=== PATIENT | male | born 1995 | race Caucasian/White ===

== ENCOUNTER 2018-05-22 09:07 | Day surgery (SDC) | payer OTHER ==
[2018-05-22 09:31] LABS: BASOPHILS % (AUTO) 0.3 %; EOSINOPHILS # (AUTO) 0.1 10^3/uL (0.0-0.7); EOSINOPHILS % (AUTO) 0.4 %; HGB - HEMOGLOBIN 14.3 g/dL (14.0-18.0); LYMPHOCYTES # (AUTO) 2.1 10^3/uL (1.5-3.5); LYMPHOCYTES % (AUTO) 15.5 %; MEAN CORPUSCULAR HGB CONC 33.6 g/dL (32.0-36.0); MEAN CORPUSCULAR VOLUME 83.3 fL (80.0-94.0); MEAN PLATELET VOLUME 7.3 fL (7.4-11.4); MONOCYTES # (AUTO) 0.9 10^3/uL (0.0-1.0); MONOCYTES % (AUTO) 6.2 %; NEUTROPHILS # (AUTO) 10.8 10^3/uL (1.5-6.6); NEUTROPHILS % (AUTO) 77.6 %; PLT - PLATELET COUNT 279 10^3/uL (130-450); RED CELL DISTRIBUTION WIDTH 13.6 % (12.0-15.0); WHITE BLOOD COUNT 13.9 x10^3/uL (4.8-10.8)
--- NOTE | 2018-05-22 09:43 | ED Physician Documentation ---
PD HPI ABD PAIN - Stated complaint Stated Complaint: ABD PX - Chief complaint Chief Complaint: Abd Pain - History obtained from History obtained from: Patient, Family - History of Present Illness Timing - onset: Enter time (1800), Last night Timing - duration: Days (1) Timing - details: Gradual onset, Still present Quality: Sharp, Pain Location: RLQ Improved by: Laying still Worsened by: Moving, Position, Palpation Associated symptoms: Nausea. No: Vomiting Similar symptoms before: Has not had sx before Recently seen: Not recently seen - Additional information Additional information: Previously well 23-year-old male developed abdominal pain at about 6 PM last night that was periumbilical and has migrated into the right lower quadrant overnight. The patient states that it was initially present only when he moved it is now present continuously. He did have a low-grade fever last night he has had some nausea without vomiting he has had some loose stool and he has lost his appetite. The patient reports four first-degree relatives with appendicitis within the last year Review of Systems Constitutional: reports: Fever Eyes: denies: Decreased vision Ears: denies: Ear pain Nose: denies: Congestion Throat: denies: Sore throat Cardiac: denies: Chest pain / pressure Respiratory: denies: Dyspnea, Cough GI: reports: Abdominal Pain, Nausea, Diarrhea. denies: Vomiting, Constipation : denies: Dysuria, Frequency Skin: denies: Rash Musculoskeletal: denies: Neck pain, Back pain, Extremity pain Neurologic: denies: Generalized weakness, Focal weakness, Numbness PD PAST MEDICAL HISTORY - Past Surgical History Past Surgical History: No - Present Medications Home Medications: Ambulatory Orders Medication Instructions Recorded Confirmed No Known Home Medications 05/22/18 05/22/18 - Allergies Allergies/Adverse Reactions: Allergies Allergy/AdvReac Type Severity Reaction Status Date / Time No Known Drug Allergies Allergy Verified 05/22/18 09:18 - Social History Does the pt smoke?: No Smoking Status: Never smoker Does the pt drink ETOH?: No Does the pt have substance abuse?: No - Immunizations Immunizations are current?: Yes - POLST Patient has POLST: No PD ED PE NORMAL - Vitals Vital signs reviewed: Yes (tachy and hypertensive ) - General General: Alert and oriented X 3, No acute distress, Well developed/nourished - HEENT HEENT: Atraumatic, PERRL, EOMI - Neck Neck: Supple, no meningeal sign - Cardiac Cardiac: RRR, No murmur - Respiratory Respiratory: No respiratory distress, Clear bilaterally - Abdomen Abdomen: Soft, Other (RLQ tenderness is specific, reproducible and localized. ) - Back Back: No CVA TTP, No spinal TTP - Derm Derm: Normal color, Warm and dry, No rash - Extremities Extremities: No deformity, No edema - Neuro Neuro: Alert and oriented X 3, superintendent greens 2-12 intact, No motor deficit, No sensory deficit, Normal speech Eye Opening: Spontaneous Motor: Obeys Commands Verbal: Oriented GCS Score: 15 - Psych Psych: Normal mood, Normal affect Results - Vitals Vitals: Vital Signs - 24 hr 05/22/18 09:15 Temperature 37.0 C Heart Rate 108 H Respiratory 14 Rate Blood Pressure 136/76 H O2 Saturation 98 Oxygen O2 Source Room air - Labs Labs: Laboratory Tests 05/22/18 05/22/18 05/22/18 09:25 09:25 09:48 WBC 13.9 H RBC 5.10 Hgb 14.3 Hct 42.5 MCV 83.3 MCH 28.0 MCHC 33.6 RDW 13.6 Plt Count 279 MPV 7.3 L Neut # (Auto) 10.8 H Lymph # (Auto) 2.1 [place] # (Auto) 0.9 Eos # (Auto) 0.1 Baso # (Auto) 0.0 Absolute Nucleated RBC 0.01 Nucleated RBC % 0.1 Sodium 141 Potassium 3.5 Chloride 104 Carbon Dioxide 23 Anion Gap 14.0 H BUN 10 Creatinine 0.8 Estimated GFR (MDRD) 119 Glucose 103 H Calcium 9.1 Total Bilirubin 1.2 H AST 20 ALT 17 Alkaline Phosphatase 61 Total Protein 8.3 H Albumin 4.4 Globulin 3.9 Albumin/Globulin Ratio 1.1 Lipase 26 Urine Color YELLOW Urine Clarity CLEAR Urine pH 6.0 Ur Specific [place] >=1.030 H Urine Protein NEGATIVE Urine Glucose (UA) NEGATIVE Urine Ketones NEGATIVE Urine Occult Blood TRACE-INTA Urine Nitrite NEGATIVE Urine Bilirubin NEGATIVE Urine Urobilinogen 0.2 (NORMAL) Ur Leukocyte Esterase NEGATIVE Ur Microscopic Review NOT INDICATED Urine Culture Comments NOT INDICATED - Rads (name of study) CT abd pel with Radiology: Prelim report reviewed (Impression: Acute appendicitis without abscess or perforation. Otherwise negative.), Discussed with rads (Dr. Aguilar), EMP read indepedently, See rad report PD MEDICAL DECISION MAKING - ED course Complexity details: reviewed old records, reviewed results, re-evaluated patient, considered differential, d/w patient, d/w family ED course: Previously healthy 23-year-old male with right lower quadrant pain has ap pendicitis on CT scan. He is administered saline and Zosyn. Dr. Matt Santillan is consulted in the case and will take the patient to surgery today. Departure - Departure Disposition: ED Transfer to [facility] Clinical Impression: Appendicitis Qualifiers: Appendicitis type: acute appendicitis Acute appendicitis type: with localized peritonitis Appendicitis gangrene presence: unspecified whether gangrene present Appendicitis perforation presence: without perforation Appendicitis abscess presence: without abscess Qualified Code(s): K35.30 - Acute appendicitis with localized peritonitis, without perforation or gangrene Condition: Stable
[2018-05-22 09:44] LABS: ALBUMIN 4.4 g/dL (3.2-5.5); ALBUMIN/GLOBULIN RATIO 1.1 (1.0-2.2); BILIRUBIN,TOTAL 1.2 mg/dL (0.2-1.0); CALCIUM 9.1 mg/dL (8.5-10.3); CREATININE 0.8 mg/dL (0.6-1.2); TOTAL PROTEIN 8.3 g/dL (6.7-8.2)
[2018-05-22] MEDS ORDERED: IOVERSOL 320 100 ML VIAL IVP ONE ×2 (09:55→17:07)
[2018-05-22 09:58] LABS: BILIRUBIN,URINE NEGATIVE (NEGATIVE); GLUCOSE, URINE (UA) NEGATIVE (NEGATIVE); KETONES,URINE (UA) NEGATIVE (NEGATIVE); LEUKOCYTE ESTERASE, URINE NEGATIVE (NEGATIVE); NITRITE,URINE NEGATIVE (NEGATIVE); OCCULT BLOOD,URINE TRACE-INTA (NEGATIVE); PROTEIN,URINE NEGATIVE (NEGATIVE); UROBILINOGEN,URINE 0.2 (NORMAL) E.U./dL (NORMAL)
[2018-05-22 10:03] LABS: CLARITY,URINE CLEAR (CLEAR)
[2018-05-22] MEDS ORDERED: SODIUM CHLORIDE 0.9% 1,000 ML IV ONE (10:14)
--- NOTE | 2018-05-22 10:21 | CT Report ---
Reason: RLQ pain Procedure Date: 05/22/2018 Accession Number: [id number] / [id number] Procedure: CT - Abdomen/Pelvis W CPT Code: FULL RESULT: EXAM: CT ABDOMEN AND PELVIS EXAM DATE: 05/22/2018 10:04 AM. CLINICAL HISTORY: RLQ pain. COMPARISONS: None. TECHNIQUE: Routine helical CT imaging was performed through the abdomen and pelvis. IV contrast: ISOVUE 300 100mL. Enteric contrast: No. Reconstructions: Coronal and sagittal. In accordance with CT protocol optimization, one or more of the following dose reduction techniques were utilized for this exam: automated exposure control, adjustment of mA and/or KV based on patient size, or use of iterative reconstructive technique. FINDINGS: Lung Bases: Unremarkable. Liver: Normal. No masses. Gallbladder/Bile Ducts: Unremarkable. Spleen: Normal. Pancreas: Normal. Adrenal Glands: Normal. Kidneys: Normal. No masses or hydronephrosis. Peritoneal Cavity/Bowel: There are 2 appendicoliths. There is definite acute appendicitis. The maximal transverse diameter is 16 mm. No evidence of abscess or perforation. Pelvic Organs: Normal. The bladder and visualized pelvic organs are within normal limits. Multiple small reactive right lower quadrant mesenteric lymph nodes. Vasculature: No aneurysms or other significant abnormality. Bones: No significant abnormality. Other: These findings were directly communicated to the ER physician. IMPRESSION: Acute appendicitis without abscess or perforation. Otherwise negative. RADIA
[2018-05-22] MEDS ORDERED: PIPERACILLIN/TAZOBACTAM 3.375 GM in SODIUM CHLORIDE 0.9% MINIBAG 100 ML IV STA (10:30)
--- NOTE | 2018-05-22 11:02 | CONSULTATION NOTE ---
Referring Provider Name of Referring Provider:: Dr. Salazar Consult Date: 05/22/18 Chief Complaint - Chief Complaint Chief Complaint: abd pain History of Present Illness - Admitted From Admitted From:: ER - History Obtained From Records Reviewed: yes History obtained from: pt Exam Limitations: none - History of Present Illness HPI Comment/Other: 23 yo male with 18 hr hx of sudden onset of dull aching RLQ pain, exacerbated by activity, cough and alleviated by rest. Associated nausea, fever, chills but no vomiting, change in bowel habits, wt loss, melena, hematochezia, heartburn, dysphagia, hx previous similar sx, others in household with similar sx. FH appendicitis in 2 siblings. Evaluation in the ER included CBC showing leukocytosis, essentially nl CMP, UA, and CT showing markedly dilated appendix with 2 appendicoliths. Surgical consultation was requested. History - Past Medical History Cardiovascular: reports: None Respiratory: reports: None Neuro: reports: None Endocrine/Autoimmune: reports: None GI: reports: Other (abd pain). denies: GERD, GI bleed, Ulcers : reports: None MRSA Hx?: No Other Past Medical History: none - Past Surgical History Other past surgical history: none - Family & Social History Living arrangement: At home Living Situation: With family Social History Notes: park maintenance technician in [place] - Substance History Use: Uses substance without health or social issues: NONE - POLST Patient has POLST: No Meds/Allgy - Home Medications Home Medications: Ambulatory Orders Medication Instructions Recorded Confirmed No Known Home Medications 05/22/18 05/22/18 - Allergies Allergies/Adverse Reactions: Allergies Allergy/AdvReac Type Severity Reaction Status Date / Time No Known Drug Allergies Allergy Verified 05/22/18 09:18 Review of Systems - Constitutional Constitutional: reports: Fever, Chills, Malaise, Poor appetite, Diaphoresis. denies: Weight gain, Weight loss - Gastrointestinal Gastrointestinal: reports: Abdominal pain, Rectal bleeding, Nausea. denies: Constipation, Diarrhea, Change in bowel habits, Black stools, Bloody stools, Vomiting - Genitourinary Genitourinary: reports: Dysuria - All Other Systems All Other Systems: reports: Reviewed and negative Exam - Vital Signs Reviewed Vital Signs: Yes Vital Signs: Vital Signs x48h Temp Pulse Resp BP Pulse Ox 05/22/18 09:15 37.0 C 108 H 14 136/76 H 98 - Physical Exam General Appearance: positive: Mild distress Eyes Bilateral: positive: Normal inspection ENT: positive: ENT inspection nml, Pharynx nml, No signs of dehydration Neck: positive: Nml inspection, Thyroid nml, No JVD, Trachea midline. negative: Lymphadenopathy (R), Lymphadenopathy (L) Respiratory: positive: Chest non-tender, No respiratory distress, Breath sounds nml. negative: Wheezes, Rales, Rhonchi Cardiovascular: positive: Regular rate & rhythm, No murmur, No gallop Abdomen: positive: Nml bowel sounds, Tenderness (RLQ peritoneal signs; no generalized peritoneal signs), Guarding, Rebound. negative: Hepatomegaly, Splenomegaly, Mass Back: positive: Nml inspection. negative: CVA tenderness (R), CVA tenderness (L) Skin: positive: Color nml, No rash, Warm, Dry. negative: Cyanosis Extremities: positive: Non-tender, No pedal edema. negative: Calf tenderness Neurologic/Psychiatric: positive: Oriented x3 Conclusion/Plan - Diagnosis Diagnosis: Acute appendicitis; no clnical or radiographic evidence of perforation at present. - Plan Plan: Lap priscila. CHARLI gale with pt and consent obtained. Procedure will be performed today. - Lab Results Lab results reviewed: Yes Fish Bones: 05/22/18 09:25 05/22/18 09:25 Other Lab Results: CMP essentially nl; UA neg - Diagnostic Imaging Results Diagnostic Imaging Results: positive: Final report reviewed, Read independently Diagnostic Imaging Results Comments: See HPI
--- NOTE | 2018-05-22 11:17 | ANESTHESIA ---
Pre-Anesthesia VS, & Labs - Diagnosis Diagnosis Acute appendicitis; no clnical or radiographic evidence of perforation at present. - Procedure Lap appy Vital Signs: Temp Pulse Resp BP Pulse Ox 37.0 C 108 H 14 136/76 H 98 05/22/18 09:15 05/22/18 09:15 05/22/18 09:15 05/22/18 09:15 05/22/18 09:15 Height 5 ft 11 in Weight (kg) 88.451 kg Body Mass Index 27.1 - NPO >8 hours - Lab Results Current Lab Results: Laboratory Tests 05/22/18 09:25: Sodium 141, Potassium 3.5, Chloride 104, Carbon Dioxide 23, Anion Gap 14.0 H, BUN 10, Creatinine 0.8, Estimated GFR (MDRD) 119, Glucose 103 H, Calcium 9.1, Total Bilirubin 1.2 H, AST 20, ALT 17, Alkaline Phosphatase 61, Total Protein 8.3 H, Albumin 4.4, Globulin 3.9, Albumin/Globulin Ratio 1.1, Lipase 26 05/22/18 09:25: WBC 13.9 H, RBC 5.10, Hgb 14.3, Hct 42.5, MCV 83.3, MCH 28.0, MCHC 33.6, RDW 13.6, Plt Count 279, MPV 7.3 L, Neut # (Auto) 10.8 H, Lymph # (Auto) 2.1, [place] # (Auto) 0.9, Eos # (Auto) 0.1, Baso # (Auto) 0.0, Absolute Nucleated RBC 0.01, Nucleated RBC % 0.1 Fish Bones: 05/22/18 09:25 05/22/18 09:25 Home Medications and Allergies Home Medications: Ambulatory Orders No Known Home Medications 05/22/18 No Known Home Medications 05/22/18 Allergies/Adverse Reactions: Allergies Allergy/AdvReac Type Severity Reaction Status Date / Time No Known Drug Allergies Allergy Verified 05/22/18 09:18 Anes History & Medical History - Anesthetic History Family history of Anesthesia Complications: Denies Family history of Malignant Hyperthermia: Denies - Medical History Cardiovascular: reports: None Pulmonary: reports: None Gastrointestinal: reports: Other (abd pain). denies: GERD, GI bleed, Ulcers Urinary: reports: None Neuro: reports: None Musculoskeletal: reports: None Endocrine/Autoimmune: reports: None Blood Disorders: reports: None Smoking Status: Never smoker Psychosocial: reports: No issues indicated Other Past Medical History: none - Surgical History Other Past Surgical History: none Exam General: Alert, Oriented x3, Cooperative, No acute distress Dental: WNL Mouth Openin Fingerbreadth Neck Mobility: Normal Mallampati classification: III Thyromental Distance: 4-6 cm Respiratory: Lungs clear, Normal breath sounds, No respiratory distress, No accessory muscle use Cardiovascular: Regular rate, Normal S1, Normal S2, No murmurs Mental/Cognitive Status: Alert/Oriented X3, Normal for patient Plan Anesthesia Type: General Consent for Procedure(s) Verified and Reviewed: Yes Code Status: Attempt Resuscitation ASA classification: 1-Healthy patient Is this case an emergency?: Yes
[2018-05-22] MEDS ORDERED: IODINE/POTASSIUM IODIDE 8 ML SOLUTION TOP ONE (12:04)
[2018-05-22] MEDS ORDERED: BUPIVACAINE 0.5%-EPI 1:200000 PF 30 ML VIAL ONE (12:05)
[2018-05-22] MEDS ORDERED: LACTATED RINGERS 1,000 ML IV ONE (13:37)
[2018-05-22] MEDS ORDERED: BUPIVACAINE 0.5%-EPI 1:200000 PF 30 ML VIAL SUBQ ONE ×2 (14:10→14:24)
[2018-05-22] MEDS ORDERED: KETOROLAC 30 MG/ML VIAL IVP ONE (14:15)
[2018-05-22] MEDS ORDERED: LIDOCAINE-MPF 2% 5 ML VIAL IM ONE (14:15)
[2018-05-22] MEDS ORDERED: ONDANSETRON 4 MG/2 ML VIAL IVP ONE (14:15)
[2018-05-22] MEDS ORDERED: NEOSTIGMINE 1 MG/1 ML 10 ML MDV IVP ONE (14:15)
[2018-05-22] MEDS ORDERED: GLYCOPYRROLATE 1 MG/5 ML VIAL IVP ONE (14:15)
[2018-05-22] MEDS ORDERED: MIDAZOLAM 2 MG/2 ML VIAL IVP ONE (14:15)
[2018-05-22] MEDS ORDERED: fentaNYL 100 MCG/2 ML VIAL IVP ONE (14:15)
[2018-05-22] MEDS ORDERED: ROCURONIUM 50 MG/5 ML VIAL IVP ONE (14:15)
[2018-05-22] MEDS ORDERED: PROPOFOL 200 MG/20 ML VIAL IVP ONE (14:15)
[2018-05-22] MEDS ORDERED: DEXAMETHASONE 4 MG/ML VIAL IVP ONE (14:15)
[2018-05-22] MEDS ORDERED: ONDANSETRON 4 MG/2 ML VIAL IVP PRN (14:54)
[2018-05-22] MEDS ORDERED: ACETAMINOPHEN 325 MG TABLET PO PRN (14:54)
[2018-05-22] MEDS ORDERED: oxyCODONE 5 MG TABLET PO PRN (14:54)
[2018-05-22] MEDS ORDERED: IBUPROFEN 600 MG TABLET PO PRN (14:54)
[2018-05-22] MEDS ORDERED: oxyCODONE 5 MG TABLET ONE (16:29)
[2018-05-22 17:01] VITALS: BP 138/83
--- NOTE | 2018-05-23 14:45 | OPERATIVE REPORT ---
DATE OF SERVICE: 05/22/2018 Physician: Matt Santillan MD PREOPERATIVE DIAGNOSIS: Acute appendicitis. POSTOPERATIVE DIAGNOSIS: Acute appendicitis. PROCEDURE PERFORMED: Laparoscopic appendectomy. ANESTHESIA: General endotracheal by Jonny Bonner CRNA SURGEON: Matt Santillan MD ESTIMATED BLOOD LOSS: 5 mL. COMPLICATIONS: None. FINDINGS: The distal 3/4 of the appendix was markedly dilated and inflamed without gross evidence of gangrenous change or perforation. The cecal base and most proximal portion of the appendix appeared normal, as did the visualized portions of the terminal ileum, remainder of the small and large bowel and liver. INDICATIONS: Patient is a 23-year-old gentleman with an approximately 18-hour history of progressive ly worsening right lower quadrant pain. Examination revealed localized peritoneal signs in the right lower quadrant. A CT scan showed an abnormally dilated appendix with several appendicoliths, findin gs thought to be consistent with acute appendicitis, and advised to undergo laparoscopic appendectomy for definitive surgical treatment. TECHNIQUE: After informed consent, patient was taken to the operating room, where he was placed unde r general endotracheal anesthesia. Preoperative preparation included application of sequential calf compression boots and therapeutic administration of Zosyn preoperatively. His abdomen was prepared w ith ChloraPrep solution and draped in the usual sterile fashion. A transverse incision was made along the inferior edge of the umbilicus and carried down through the layers of abdominal wall. The peritoneum was identified and entered sharply. A 10 mm Jessie cannula was inserted. Pneumoperitoneum was achieved with carbon dioxide. A 10 mm 30-degree Terese telesco pe was inserted. Laparoscopy was carried out with findings noted above. Two additional 5 mm ports w ere placed in the lower midline and left lower quadrant. Instruments were passed. The appendix was grasped. The mesoappendix was exposed, ligated, and divided with the LigaSure device. The appendix was ligated and divided at its junction with the cecal base with the 45 mm linear cutting stapling de vice with a vascular load. This also provided hemostasis. The appendix was placed in an organ retri eval bag, extracted, and then sent for pathologic evaluation. After hemostasis was assured, the right lower quadrant was irrigated with saline solution, following which instruments and cannulas were removed under direct vision. Pneumoperitoneum was allowed to esc ape, and the incisions were closed in layers using continuous 0 Vicryl reapproximating the midline fa scia at the umbilicus, followed by 4-0 Monocryl subcuticular skin closure at all the port sites, foll owed by Dermabond. Then, 20 mL of 0.5% Marcaine with epinephrine was infiltrated into the incision t o assist in postoperative analgesia. Anesthesia was terminated and patient transferred to the [facility] ry room in satisfactory condition. Sponge and needle counts were correct x2, and no drains were used . TD: 05/23/2018 13:09
== END 2018-05-22 10:46 | disposition home or self-care (01) ==
LOC: ED 09:07 → SDS 10:45
PROVIDERS: ATTEND Internal Medicine Gastroenterology
PROC: 0DTJ4ZZ Resection of Appendix, Percutaneous Endoscopic Approach (ICD-10-PCS; principal; 2018-05-22 12:00)
DX: K35.80 Unspecified acute appendicitis (principal)
CPT/HCPCS: 36415; 44970; 74177; 80053; 81003; 83690; 85025; 96361; 96365; 99283; 99284; A9270; J7120; Q9967; 81001; 87086

== ENCOUNTER 2018-08-23 07:56 | Emergency (ER) | payer OTHER ==
[2018-08-23 08:01] VITALS: BP 142/89
--- NOTE | 2018-08-23 08:21 | ED Physician Documentation ---
PD HPI MALE - Stated complaint Stated Complaint: MALE - Chief complaint Chief Complaint: General - History obtained from History obtained from: Patient - History of Present Illness Timing - onset: How many days ago (2-3) Timing - duration: Days (2-3) Timing - details: Gradual onset, Still present Associated symptoms: Testiclar pain (he noted a lump that is tender in left scrotum. No noted injury. No discharge nor rash.). No: Scrotal swelling PD HPI MALE CONTRIB FACTORS: Sexually active (with just his .) Similar symptoms before: Has not had sx before Review of Systems Throat: denies: Sore throat Respiratory: denies: Dyspnea, Cough GI: reports: Abdominal Pain (mild aching at times), Nausea. denies: Vomiting : reports: Frequency. denies: Discharge Skin: denies: Rash Musculoskeletal: denies: Neck pain, Back pain PD PAST MEDICAL HISTORY - Past Medical History Cardiovascular: None Respiratory: None Neuro: None Endocrine/Autoimmune: None GI: Other : None Musculoskeletal: None - Past Surgical History Past Surgical History: No - Present Medications Home Medications: Ambulatory Orders Medication Instructions Recorded Confirmed Doxycycline Hyclate 100 mg PO BID #14 capsule 08/23/18 Naproxen 500 mg PO BID #20 tablet 08/23/18 - Allergies Allergies/Adverse Reactions: Allergies Allergy/AdvReac Type Severity Reaction Status Date / Time No Known Drug Allergies Allergy Verified 08/23/18 08:01 - Social History Does the pt smoke?: No Smoking Status: Never smoker Does the pt drink ETOH?: No Does the pt have substance abuse?: No - Immunizations Immunizations are current?: Yes - POLST Patient has POLST: No PD ED PE NORMAL - Vitals Vital signs reviewed: Yes - General General: Alert and oriented X 3, No acute distress, Well developed/nourished - Abdomen Abdomen: Soft, Non tender - Male Male : Other (normal genitalia with normal testicular lie. Bedside U/S showing no noted masses, good blood flow. ) - Rectal Rectal: Deferred - Back Back: No CVA TTP Results - Vitals Vitals: Vital Signs - 24 hr 08/23/18 08:00 Temperature 36.4 C L Heart Rate 100 Respiratory 20 Rate Blood Pressure 142/89 H O2 Saturation 97 Oxygen O2 Source Room air PD MEDICAL DECISION MAKING - ED course Complexity details: reviewed results (my bedside U/S showed normal flow in testicle, normal size, and no masses. No fluid collections in scrotum. ), considered differential (seems likely stretch/mechanical epididymitis. Will get bedside U/S. ), d/w patient Departure - Departure Disposition: 01 Home, Self Care Clinical Impression: Epididymitis, left, Left testicular pain Condition: Stable Record reviewed to determine appropriate education?: Yes Instructions: ED Epididymitis Follow-Up: [facility] [Provider Group] [facility] [Provider Group] Prescriptions: Doxycycline Hyclate 100 mg PO BID #14 capsule Naproxen 500 mg PO BID #20 tablet Comments: This seems like epididymitis which can be inflammatory or infectious. We will treat it with naproxen anti-inflammatories and doxycycline antibiotic. Avoid vigorous activity with a lot of jostling such as bouncing or running or basketball types of things. Less inguinal stretching for a few days as well. See if this tapers down and improves over the next several days and should be gone during that time or even by a week. Follow-up with your primary care or urology if it persists. Discharge Date/Time: 08/23/18 09:11
[2018-08-23] MEDS ORDERED: DOXYCYCLINE 100 MG TABLET PO STA (08:49)
[2018-08-23] MEDS ORDERED: NAPROXEN 250 MG TABLET PO STA (08:49)
== END 2018-08-23 09:11 | disposition home or self-care (01) ==
LOC: ED 07:56
DX: N45.1 Epididymitis (principal)
CPT/HCPCS: 99282; 99284; A9270

== ENCOUNTER 2019-02-22 12:35 | Emergency (ER) | payer OTHER ==
--- NOTE | 2019-02-22 14:02 | Ultrasound Report ---
Reason: L testicle pain Procedure Date: 02/22/2019 Accession Number: [id number] / [id number] Procedure: US - Testicle w/Doppler Limited CPT Code: Final Report FULL RESULT: EXAM: SCROTAL ULTRASOUND EXAM DATE: 02/22/2019 01:35 PM. CLINICAL HISTORY: L testicle pain. COMPARISON: None. TECHNIQUE: Real-time scanning was performed with static images obtained. Color-flow images were utilized. FINDINGS: Right: Testis: 5.0 x 2.2 x 3.2 cm. Normal size and echotexture. No mass, calcification, or abnormal blood flow. Epididymis: 3.2 x 1.0 x 1.7 cm. Normal size and echotexture. No mass or abnormal blood flow. Hydrocele: Tiny hydrocele. Varicocele: None. Left: Testis: 4.5 x 2.2 x 3.1 cm. Normal size and echotexture. No mass, calcification, or abnormal blood flow. Epididymis: 4.0 x 0.7 x 1.2 cm. Normal size and echotexture. No mass or abnormal blood flow. Hydrocele: None. Varicocele: None. IMPRESSION: Tiny right hydrocele. Otherwise unremarkable. RADIA
[2019-02-22 15:18] LABS: GLUCOSE, URINE (UA) NEGATIVE (NEGATIVE); KETONES,URINE (UA) NEGATIVE (NEGATIVE); LEUKOCYTE ESTERASE, URINE NEGATIVE (NEGATIVE); NITRITE,URINE NEGATIVE (NEGATIVE); OCCULT BLOOD,URINE TRACE-LYSE (NEGATIVE); PROTEIN,URINE TRACE mg/dL (NEGATIVE); UROBILINOGEN,URINE 1 (NORMAL) E.U./dL (NORMAL)
[2019-02-22 15:23] VITALS: BP 153/85
[2019-02-22 15:26] LABS: BILIRUBIN,URINE NEGATIVE (NEGATIVE); CLARITY,URINE CLEAR (CLEAR); ICTOTEST,URINE NEGATIVE
--- NOTE | 2019-02-22 15:39 | ED Physician Documentation ---
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 He has had some persistence of pain up into the left groin area since that time and has a follow-up to see his primary next week about that. He is now developed pain in the right testicle in a similar fashion he denies any discharge denies any urinary symptoms he does feel like he has felt a tiny mass on the testicle on the right side. Review of Systems Constitutional: denies: Fever Nose: denies: Congestion Throat: denies: Sore throat Respiratory: denies: Dyspnea, Cough GI: denies: Abdominal Pain, Nausea, Vomiting : denies: Dysuria, Frequency Skin: denies: Rash Musculoskeletal: denies: Neck pain, Back pain, Extremity pain Neurologic: denies: Generalized weakness, Focal weakness, Numbness PD PAST MEDICAL HISTORY - Past Medical History Past Medical History: No Cardiovascular: None Respiratory: None Neuro: None Endocrine/Autoimmune: None GI: Other : None Musculoskeletal: None - Past Surgical History Past Surgical History: No - Present Medications Home Medications: Ambulatory Orders Medication Instructions Recorded Confirmed Doxycycline Hyclate 100 mg PO BID #14 capsule 08/23/18 Naproxen 500 mg PO BID #20 tablet 08/23/18 Doxycycline Hyclate 100 mg PO BID #28 capsule 02/22/19 - Allergies Allergies/Adverse Reactions: Allergies Allergy/AdvReac Type Severity Reaction Status Date / Time No Known Drug Allergies Allergy Verified 02/22/19 12:46 - Social History Does the pt smoke?: No Smoking Status: Never smoker Does the pt drink ETOH?: No Does the pt have substance abuse?: No - Immunizations Immunizations are current?: Yes - POLST Patient has POLST: No PD ED PE NORMAL - Vitals Vital signs reviewed: Yes (tachy and hypertensive) - General General: Alert and oriented X 3, No acute distress, Well developed/nourished - HEENT HEENT: Atraumatic, PERRL, EOMI - Respiratory Respiratory: No respiratory distress - Male Male : Other (There is mild tenderness to the right testicle and epidydimis and there is a papable mass to the right teticle anteriorly about 2mm firm in size. Tiny. There is no discharge and not much tenderness to the right inguinal canal. ) - Derm Derm: Normal color, Warm and dry, No rash - Extremities Extremities: No deformity, No edema - Neuro Neuro: Alert and oriented X 3, fibreglass gun hand 2-12 intact, No motor deficit, No sensory deficit, Normal speech Eye Opening: Spontaneous Motor: Obeys Commands Verbal: Oriented GCS Score: 15 - Psych Psych: Normal mood, Normal affect Results - Vitals Vitals: Vital Signs - 24 hr 02/22/19 02/22/19 12:44 15:22 Temperature 36.2 C L Heart Rate 115 H 109 H Respiratory 16 14 Rate Blood Pressure 145/101 H 153/85 H O2 Saturation 98 98 Oxygen O2 Source Room air - Labs Labs: Laboratory Tests 02/22/19 15:14 Urine Color YELLOW Urine Clarity CLEAR Urine pH 6.0 Ur Specific Mobile >=1.030 H Urine Protein TRACE Urine Glucose (UA) NEGATIVE Urine Ketones NEGATIVE Urine Occult Blood TRACE-LYSE Urine Nitrite NEGATIVE Urine Bilirubin NEGATIVE Urine Urobilinogen 1 (NORMAL) Ur Leukocyte Esterase NEGATIVE Ur Microscopic Review NOT INDICATED Urine Culture Comments NOT INDICATED PD MEDICAL DECISION MAKING - ED course Complexity details: considered differential, d/w patient, d/w family ED course: 24-year-old male with some tenderness to the right testicle has had epididymitis previously he has an exam consistent with possibility of epididymitis the ultras ound was otherwise unremarkable no evidence of a torsion or mass to the testicle there is a tiny hydrocele on that side. I am uncertain what to make of the palpable mass that is very small. I will have him follow with his primary. We will place him on a course of doxycycline. Departure - Departure Disposition: 01 Home, Self Care Clinical Impression: Acute epididymitis Condition: Stable Instructions: ED Epididymitis Follow-Up: OMID ALFORD MD [Primary Care Provider] - Anthony Villegas MD [Provider Admit Priv/Credential] - Prescriptions: Doxycycline Hyclate 100 mg PO BID #28 capsule
== END 2019-02-22 15:51 | disposition home or self-care (01) ==
LOC: ED 12:35
DX: N45.1 Epididymitis (principal); N43.3 Hydrocele, unspecified; N50.89 Other specified disorders of the male genital organs
CPT/HCPCS: 76870; 81001; 81003; 87086; 93976; 99284